=== PATIENT | female | born 1950 | race Asian ===

== ENCOUNTER → 2018-03-04 | Outpatient (CLI) | payer MEDICARE, OTHER ==
[~2018-03-04] MED LIST: ASCO-96 PO; ASCO100T5 PO; ASPI-621 PO; CALC500T93 PO; CHOL400C11 PO; CYAN2000 SL; DOCU-131 PO; FEXO60TA24 PO; FURO-92 PO; HYDR-3307 PO; IBUP200C8 PO; OMEP-110 PO; POTA20TA14 PO; WARF2.5T73 PO; WARF2.5T73 PO-COUM
== END | disposition home or self-care (01) ==
LOC: CVU 09:52
PROVIDERS: ATTEND Internal Medicine Cardiovascular Disease
DX: I35.1 Nonrheumatic aortic (valve) insufficiency (principal); I10 Essential (primary) hypertension
CPT/HCPCS: 93306

== ENCOUNTER → 2018-09-08 | Outpatient (CLI) | payer MEDICARE, OTHER | END | disposition home or self-care (01) | LOC: CFH 09:57 | PROVIDERS: ATTEND Internal Medicine | DX: Z13.820 Encounter for screening for osteoporosis (principal); M85.88 Other specified disorders of bone density and structure, other site; N95.8 Other specified menopausal and perimenopausal disorders | CPT/HCPCS: 77080 ==

== ENCOUNTER → 2020-08-29 | Outpatient (CLI) | payer MEDICARE, OTHER ==
[~2020-08-29] MED LIST changes: -ASPI-621 PO; +ASPI81TA45 PO; +HYDR-3246 PO; -HYDR-3307 PO; +WARF2.5T32 PO; +WARF2.5T32 PO-COUM; -WARF2.5T73 PO; -WARF2.5T73 PO-COUM
[2020-08-29 11:05] LABS: CHLORIDE 106 mmol/L (98-107)
[2020-08-29 11:06] LABS: ALANINE AMINOTRANSFERASE 18 U/L (12-78); ALBUMIN 3.9 g/dL (3.4-5.0); ANION GAP 4 mmol/L (5-15); CHOLESTEROL, TOTAL 213 mg/dL (140-239); CREATININE 0.62 mg/dL (0.55-1.02)
[2020-08-29 11:07] LABS: ALKALINE PHOSPHATASE 69 U/L (45-117); BILIRUBIN,TOTAL 0.9 mg/dL (0.2-1.0); CHOL/HDL RATIO 2.3; HDL CHOL % 43 % (28-40); HDL CHOLESTEROL (DIRECT) 91 mg/dL (40-60); LDL CHOLESTEROL,CALCULATED 108 mg/dL (54-169); LDL/HDL RATIO 1.2 (0.5-3.0); TOTAL PROTEIN 7.6 g/dL (6.4-8.2); TRIGLYCERIDES 68 mg/dL (50-200); VLDL CHOLESTEROL 14 mg/dL (0-25)
== END | disposition home or self-care (01) ==
LOC: CVU 09:41
PROVIDERS: ATTEND Internal Medicine Cardiovascular Disease
DX: I35.8 Other nonrheumatic aortic valve disorders (principal); E87.6 Hypokalemia; I10 Essential (primary) hypertension
CPT/HCPCS: 36415; 80053; 80061; 93306